=== PATIENT | female | born 1960 | race Caucasian/White ===

== ENCOUNTER 2019-09-22 16:17 | Observation (INO) | payer OTHER, SELFPAY ==
[2019-09-22] VITALS (30 sets, daily range): BP systolic 113–149; BP diastolic 48–92; PULSE 75–105; RESP 15; TEMP 35.7–37; O2SAT 91–100
--- NOTE | 2019-09-22 16:51 | ED.GENADUL_ITS ---
Discharge Plan Disposition Patient Disposition: [facility] INPATIENT Condition: Improving Discharge Details Chief Complaint: HeadInjury Clinical Impression: Head concussion Primary Care Provider: Magdalena Whitley ED Provider: Pantera Pedersen Home Meds and New Rx's Prescriptions: No Action dihydroergotamine 1 mg/mL Solution 1 mg SUBCUT Q1H PRNRF: 0 promethazine 25 mg/mL Solution 25 mg IM BID PRN PRNRF: 0 gabapentin 300 mg Capsule 600 mg PO QHS RF: 0 ondansetron 4 mg Tablet,Disintegrating 8 mg PO Q8H PRNRF: 0 apixaban 2.5 mg Tablet 2.5 mg PO BID RF: 0 desvenlafaxine 50 mg Tablet Extended Release 24 Hr 50 mg PO DAILY RF: 0 biotin 5,000 mcg Tablet,Disintegrating 5,000 mcg PO DAILY RF: 0 magnesium oxide 400 mg magnesium Tablet 400 mg PO BID RF: 0 Aimovig Autoinjector 140 mg/mL Auto-Injector 140 mg SUBCUT QMONTH RF: 0 Medical Decision Making <Kayla Thrasher DO - Last Filed: 09/22/19 19:42> 1630 -- 58-year-old female with a history of DVT on Eliquis presents for head injury with confusion and amnesia after fall while ice skating with her grandson. There was no report of LOC. Patient arrived per EMS. C-collar placed on arrival. Patient initially asked why she was here and did not recall the events leading to her being here. She initially did not know who was here with her. She then was able to recall her grandson's name who was sitting next to her. During my evaluation, patient appears confused, she continually asks what happened to her. She admits to some mild headache. She has had 2 episodes of vomiting. She denies any other pain or injury. She does not know her medical history or medications. No evidence of head trauma. No evidence of chest or abdomen or extremity trauma. Midline C/T/L-spine nontender. No obvious focal deficits. arrived shortly after patient's arrival and states that patient normally is alert and oriented x3. He states she takes Eliquis for history of left lower extremity blood clot. He states she does not normally go ice-skating and that she took her 4-year-old grandson this afternoon. He states she left at 1 PM and was her normal self at that time. We will send for stat CT head and cervical spine. Discussed with that her symptoms could be due to severe concussion. Patient given Zofran for nausea. 1739 --imaging reviewed and negative. Patient still with nausea. states the patient has frequent nausea with her migraines. Will give a dose of Phenergan and IV Tylenol. 1839 --patient reassessed -She appears sleepy but is now oriented x3. Discussed with that I recommend that patient stay for observation for the next few hours to ensure that her symptoms improve and she is more awake and alert with memory of advance. He is agreeable with this plan at this time. 1934 --patient complaining of headache 02/20 to nurse. Patient reassessed and she is oriented x3 but still appears confused. She does not recall ice-skating today. Patient does have a history of migraines and she admits to nausea. Will give a dose of Compazine, Benadryl, Decadron with another liter of IV fluids and will reassess. 1999 --Case endorsed to Dr. Pedersen to observe patient over the next few hours and reassess for mental status and if patient returns to baseline, can discharged home. If pt still remaining confused and amnestic, will recommend admission for observation overnight. Medical Records Medical records reviewed: Yes I reviewed the patient's medical records. <Pantera Pedersen, - Last Filed: 09/22/19 22:26> This is a 58-year-old female who was signed out to me by my colleague Dr. Kayla Thrasher, please refer to her history and physical, and assessment and plan. Patient was signed out for reevaluation after medication administration. Patient was ice skating, slipped and hit her head earlier today, she had a loss of consciousness, notable concussion and transient global amnesia. She is on Eliquis for history of blood clots. CT scan and initial assessment was performed by my colleague, CT scan negative for acute process. Per virtual radiology there is no evidence of bleed, however there is evidence of a dural based calcification in the left frontal lobe and a 15 mm densefalx calcification along the right anterior falx consistent with meningiomas. On reassessment the patient is having slight improvement, but does still have notable transient global amnesia. I feel that this is likely secondary to a notable concussion. With her lack of complete improvement, in conjunction with her Eliquis use, I do feel that observation period is warranted. I recommend overnight observation, and if her symptoms are unresolved then I think she would benefit from repeat imaging versus potential MRI. I discussed the case with the hospitalist Dr. Hendrix, he agrees with the assessment and plan. I have extensively reviewed the treatment plan with the patient. I have addressed all patient concerns at this time. I have also discussed the plan with the admitting physician and they agree with the current assessment and plan and have agreed to assume responsibility for the patient. All parties demonstrate verbal understanding and agreement with our assessment and plan at this time. FINDINGS: 18 mm dural based calcification in the left frontal lobe and 15 mm dense calcification along the right anterior falx consistent with meningiomas. No evidence of hemorrhage. No mass effect. No acute intracranial abnormality. No evidence of acute fracture. Fluid in the left mastoid air cells. IMPRESSION: No evidence of acute intracranial process. FINDINGS: Fluid again noted in the left mastoid air cells with a possible air-fluid level in a far medial cell. Acute mastoid sinus disease could not be excluded. Anatomic alignment. No evidence of acute fracture. Paraspinous soft tissues unremarkable. Lung apices within normal limits. IMPRESSION: 1. No evidence of acute bony injury. 2. Left mastoid sinus disease as outlined above. Thank you for allowing us to participate in the care of your patient. Dictated and Authenticated by: Cornelius Ybarra MD 09/22/2019 5:46 PM Eastern Time ([place] & [place]) HPI <Kayla Thrasher DO - Last Filed: 09/22/19 19:42> General Mode of arrival: EMS . Date/Time Provider Initiated Documentation: 09/22/19 16:35 . Limitations to Documentation: no limitations . Information obtained by: patient and EMS . History of Present Illness 58 year old F presents to the emergency department with the chief complaint of Fall while ice skating with head injury, no LOC, confusion and vomiting., and is localized to the head. Patient reports no radiation. Patient started experiencing this hour(s) (1) and it has been constant. No relieving factors improve symptom(s), No exacerbating factors reported . Patient notes confusion and nausea/vomiting; denies headaches. Patient did receive the following treatments prior to arrival, none Related Data Home Medications Medication Instructions Recorded Confirmed apixaban 2.5 mg PO BID 09/22/19 09/22/19 biotin 5,000 mcg PO DAILY 09/22/19 09/22/19 desvenlafaxine 50 mg PO DAILY 09/22/19 09/22/19 dihydroergotamine 1 mg SUBCUT Q1H PRN 09/22/19 09/22/19 erenumab-aooe [Aimovig 140 mg SUBCUT QMONTH 09/22/19 09/22/19 Autoinjector] gabapentin 600 mg PO QHS 09/22/19 09/22/19 magnesium oxide 400 mg PO BID 09/22/19 09/22/19 ondansetron 8 mg PO Q8H PRN 09/22/19 09/22/19 promethazine 25 mg IM BID PRN PRN 09/22/19 09/22/19 Allergies Allergy/AdvReac Type Severity Reaction Status Date / Time No Known Allergies Allergy Unverified 09/22/19 17:03 General Stated Complaint: HeadInjury MANE: 3 Review of Systems <Kayla Thrasher DO - Last Filed: 09/22/19 19:42> All systems reviewed & are unremarkable except as noted in HPI and below Constitutional Constitutional: Reports as per HPI, Denies chills and Denies fever(s) Eyes Eyes: Denies blurry vision ENT Ears, Nose, Mouth, and Throat: Denies dizziness, Denies sore throat and Denies throat swelling Cardiovascular Cardiovascular: Denies chest pain and Denies dyspnea Respiratory Respiratory: Denies cough and Denies dyspnea Gastrointestinal Gastrointestinal: Denies abdominal pain, Denies diarrhea and Denies vomiting Genitourinary Genitourinary: Denies hematuria and Denies dysuria Musculoskeletal Musculoskeletal: Denies back pain and Denies numbness Integumentary/Breasts Skin/Breast: Denies lesions and Denies rash Neurologic Neurologic: Denies dizziness, Denies focal weakness and Denies numbness Allergic/Immunologic Allergic/Immunologic: Denies throat swelling PFSH <Kayla Thrasher DO - Last Filed: 09/22/19 19:42> Medical History (Updated 09/22/19 @ 22:26 by Pantera Pedersen DO) DVT (deep venous thrombosis) (Chronic) Surgical History (Updated 09/22/19 @ 17:22 by Kayla Thrasher DO) History of bilateral tubal ligation (Acute) Social History Smoking/Tobacco Use Status: Never Alcohol Intake: current Alcohol Intake frequency: holidays/special occasions only Drug use: Never Exam <Kayla Thrasher DO - Last Filed: 09/22/19 19:42> Const General: cooperative and healthy appearing Orientation: alert and awake HENMT Head: normal to inspection Ears: hearing grossly normal bilaterally, external ears normal and TM's normal bilaterally General nose exam: external nose normal Face and sinus: normal facial exam Mouth: oral mucosae normal Teeth and gingiva: dentition normal Throat: posterior oropharynx normal Eyes General: appearance normal, both eyes and all related structures Eyelids: eyelids normal Pupils: PERRL EOM: EOM intact bilaterally Neck Neck: normal visual inspection Lymphatic: no lymphadenopathy noted Chest Chest: normal inspection of the chest, normal palpation of entire chest wall and no tenderness Resp Effort & Inspection: normal respiratory effort and able to speak in complete sentences Auscultation: clear to auscultation bilaterally Cardio Rate: regular rate Rhythm: regular rhythm GI Inspection: normal to inspection Palpation: soft, not firm, no guarding, no hepatosplenomegaly, no masses and nontender Auscultation: normal bowel sounds Back/Spine/Pelvis Cervical Spine: No cervical spinal tenderness Thoracic/Lumbar Spine: thoracic and lumbar spine normal to inspection, No thoracic spinal tenderness and No lumbar spinal tenderness Skin General skin exam: no rashes or lesions noted Neuro General: alert, awake, oriented Patient Orientation: Person, Place and Confused and moves all extremities Cranial Nerves: CN's II-XI intact bilaterally Cognition: normal cognition Speech: speech normal Gait: normal gait Motor: muscle tone normal throughout Sensory Exam: no sensory deficits noted Extrem General: normal to inspection, full ROM and normal capillary refill Psych Appearance: grossly normal Mental Status: mental status grossly normal Speech and Movement: speech and movement normal Affect: normal affect Thought Process: normal Course <Kayla Thrasher DO - Last Filed: 09/22/19 19:42> Vital Signs Vital signs: Vital Signs Temperature 96.3 F L 09/22/19 16:21 Pulse 91 H 09/22/19 16:21 Respiratory Rate 15 09/22/19 16:21 Blood Pressure 149/72 H 09/22/19 16:21 Pulse Oximetry 98 09/22/19 16:21 Temperature 96.3 F L 09/22/19 16:21 Temperature Source Tympanic 09/22/19 16:21 Pulse 91 H 09/22/19 16:21 Respiratory Rate 15 09/22/19 16:21 Blood Pressure 149/72 H 09/22/19 16:21 Pulse Oximetry 98 09/22/19 16:21 Oxygen Delivery Method Room Air 09/22/19 16:21 Oxygen Flow Rate 0 09/22/19 16:21 Comment 09/22/19 16:21 Sign Out <Kayla Thrasher DO - Last Filed: 09/22/19 19:42> Sign Out Data: Sign Out Comment: Follow-up on response to medications for headache as well as reassessment of mental status. If confirms patient more back to baseline and patient no longer significantly confused, can discharged home. If remains confused with amnesia, likely consider admission overnight for observation. Last updated by Kayla Thrasher DO at 09/22/19 19:44
[2019-09-22] MEDS: Ondansetron 4 MG/2 ML VIAL (16:55)
--- NOTE | 2019-09-22 17:19 | DI.CT_ITS ---
EXAM: CT HEAD CERVICAL SPINE WO CLINICAL HISTORY: s/p head injury, dizzy, vomiting,? FX TECHNIQUE: Noncontrast COMPARISON: No exams were available for comparison FINDINGS: HEAD: There is dense calcification emanating from the left frontal skull, measuring 18 millimeters, consistent with a calcified meningioma. An additional dense calcification is seen along the falx in the right frontal region. There is no evidence of mass effect or adjacent brain edema. No acute hem orrhage or skull fracture is seen. The ventricles are normal in size. There is fluid within several left mastoid air cells. No fracture is seen. CT of the cervical spine: No fracture or subluxation is seen. The airway appears intact. There are mi nimal degenerative changes. There is no paraspinal hematoma. Fluid is noted within several mastoid ai r cells. IMPRESSION: Left mastoid fluid. No acute abnormality. No acute abnormality.
--- NOTE | 2019-09-22 17:46 | DI.VRAD_ITS ---
PROCEDURE INFORMATION: Exam: CT Head Without Contrast Exam date and time: 09/22/2019 5:19 PM Age: 58 years old Clinical indication: Other: S/P head injury, dizzy, vomiting TECHNIQUE: Imaging protocol: Computed tomography of the head without contrast. Radiation optimization: All CT scans at this facility use at least one of these dose optimization techniques: automated exposure control; mA and/or kV adjustment per patient size (includes targeted exams where dose is matched to clinical indication); or iterative reconstruction. COMPARISON: No relevant prior studies available. FINDINGS: 18 mm dural based calcification in the left frontal lobe and 15 mm dense calcification along the right anterior falx consistent with meningiomas. No evidence of hemorrhage. No mass effect. No acute intracranial abnormality. No evidence of acute fracture. Fluid in the left mastoid air cells. IMPRESSION: No evidence of acute intracranial process. PROCEDURE INFORMATION: Exam: CT Cervical Spine Without Contrast Exam date and time: 09/22/2019 5:19 PM Age: 58 years old Clinical indication: Other: S/P head injury, dizzy, vomiting TECHNIQUE: Imaging protocol: Computed tomography images of the cervical spine without contrast. Radiation optimization: All CT scans at this facility use at least one of these dose optimization techniques: automated exposure control; mA and/or kV adjustment per patient size (includes targeted exams where dose is matched to clinical indication); or iterative reconstruction. COMPARISON: No relevant prior studies available. FINDINGS: Fluid again noted in the left mastoid air cells with a possible air-fluid level in a far medial cell. Acute mastoid sinus disease could not be excluded. Anatomic alignment. No evidence of acute fracture. Paraspinous soft tissues unremarkable. Lung apices within normal limits. IMPRESSION: 1. No evidence of acute bony injury. 2. Left mastoid sinus disease as outlined above. Dictated and Authenticated by: Cornelius Ybarra MD. Ordering:FIDEL Garza MD
[2019-09-22] MEDS: Normal Saline 1,000 ML 1000 ML IV ×2 (18:05→20:09)
[2019-09-22] MEDS: ACETAMINOPHEN 1,000 MG/100 ML BTL 400 MG IVPB (18:22)
[2019-09-22] MEDS: Dexamethasone 10 MG/ML VIAL IVP (20:07)
[2019-09-22] MEDS: diphenhydrAMINE 50 MG/ML VIAL 25 MG IVP (20:08)
[2019-09-22] MEDS: Prochlorperazine 10 MG/2 ML VIAL IVP (20:09)
--- NOTE | 2019-09-22 22:11 | W.PM.HP.N ---
Date of service: 09/22/19 Time of Service: 22:12 Assessment and Plan Assessment and plan (1) Head concussion: Start date: 09/22/19 Status: Acute Assessment and plan: This is a 58-year-old lady who fell while ice skating with her grandson striking the back of her head with significant concussion syndrome and loss of memory of the event but no loss of consciousness on the scene. She has a headache with her concussion and this is being treated with possible migraine headache exacerbated by the event. She is sedated but conscious and answering questions appropriate except for her loss of memory around the event. She has no focal neurological findings. She was not able to go home because of her continued headache and debilitated state. We will observe her overnight with every 2 hours neurochecks with rescanning if she has a change in status. Consider MRI in the morning if indicated. Neurology consultation if available during her observation. She will most likely require adjustment of therapy for her postconcussion headache possibility of an amitriptyline though she is already on antidepressants this needs to be reviewed for complex. Neurology may be helpful. If she does have a change in status or an intracranial bleed with rescanning she will be transferred [place] [facility] [place] intervention. Qualifiers: Encounter type: initial encounter Loss of consciousness presence/duration: without LOC Qualified Code(s): S06.0X0A - Concussion without loss of consciousness, initial encounter (2) Headache: Start date: 09/22/19 Status: Acute Assessment and plan: This is most likely a postconcussive headache along with her migraine headaches in combination. Continue symptomatic care with her usual meds and consider adding amitriptyline with neurology consultation locally or at [facility] for long-term care if there are no acute sequelae with intracranial bleed. Qualifiers: Headache chronicity pattern: acute headache Headache type: post-traumatic Intractability: intractable Qualified Code(s): G44.311 - Acute post-traumatic headache, intractable (3) Posttraumatic amnesia: Start date: 09/22/19 Status: Acute Assessment and plan: Patient has lost memory of the event only and is not usual. Continue to observe and follow-up with neurology in consultation as an outpatient. History of Present Illness History of Present Illness Chief Complaint: Fall on ice striking the back of her head with no loss of consciousness Narrative: This is a 58-year-old lady who was ice getting with her 4-year-old grandson when she caught the back of her skate and fell backwards striking her head twice bouncing off of the ice. She had whiplash type injury and hit the back of her head with no significant bleed or laceration. She has no memory of the event until she awakened in the ED but she was conscious throughout according to people at the scene. She complained of a headache and neck ache with some relief from medications in the ED. She has no focal motor deficits and she is able to speak though she is speaking softly. Is mostly closing her eyes stating that she does have light sensitivity with headaches at home and even without headaches. She was not incontinent of urine or stool and had no seizure activity at the scene. Imaging of the ED was negative for acute bleeds. Review of Systems Narrative: 13 point review of systems otherwise unrevealing or stable. Patient has loss of memory of the event and present has a headache 6 out of 10 with the patient stating sometimes her headache can be 20 out of 10 reflecting her poor coping with chronic pain. She does have depression. She has had no recent bleeding on Eliquis. 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 Migraine headache (Chronic) Surgical History History of bilateral tubal ligation (Acute) Social History Smoking/Tobacco Use Status: Never Alcohol Intake: current Alcohol Intake frequency: holidays/special occasions only Drug use: Never Meds Home Medications and Allergies Home Medications Medication Instructions Recorded Confirmed Type apixaban 2.5 mg PO BID 09/22/19 09/22/19 History biotin 5,000 mcg PO DAILY 09/22/19 09/22/19 History desvenlafaxine 50 mg PO DAILY 09/22/19 09/22/19 History dihydroergotamine 1 mg SUBCUT Q1H PRN 09/22/19 09/22/19 History erenumab-aooe [Aimovig 140 mg SUBCUT QMONTH 09/22/19 09/22/19 History Autoinjector] gabapentin 600 mg PO QHS 09/22/19 09/22/19 History magnesium oxide 400 mg PO BID 09/22/19 09/22/19 History ondansetron 8 mg PO Q8H PRN 09/22/19 09/22/19 History promethazine 25 mg IM BID PRN PRN 09/22/19 09/22/19 History Allergies Allergy/AdvReac Type Severity Reaction Status Date / Time No Known Allergies Allergy Unverified 09/22/19 17:03 Exam Narrative Exam Narrative: General: Patient appears appropriate for age, alert and oriented to person and place and to time except for the missing time around the accident. She is sedated. She appears to be in no acute distress with her eyes closed lying still and moderate distress when trying to answer questions. She does smile occasionally during conversation especially when she said sometimes her headache is a 20 out of 10. HEENT: Normocephalic with no obvious trauma to the face or back of her head. Eyes with pupils equal and reactive to light symmetrically, extraocular movement intact and sclera anicteric without injection or hemorrhage. There is no nystagmus. Ears are normal without drainage. Oropharynx with slightly dry oral mucosa and fair dentition. Neck: Supple without JVD. Slightly uncomfortable to passive range of motion but no crepitus. Back: Stooped posture without CVA tenderness. Lungs: Clear to auscultation percussion without focalizing findings or adventitious sounds. Normal aeration. Breast: Exam deferred. Heart: Regular rate and rhythm without murmurs or gallops appreciated. Abdomen: Soft, nontender with no palpable hepatosplenomegaly, no guarding no palpable masses. Rectal/genitalia: Exam deferred. Extremities: Without clubbing, cyanosis or edema with peripheral pulses intact. Normal musculature. All joints have full range of motion. Skin: Pale, warm and dry without bruising noted. Neuro: Cranial nerves II through XII grossly intact, no focalizing motor deficits, no Babinski's and reflexes are physiologic and symmetrical. Sensory appear to be grossly intact. Patient was examined lying in bed. Psych: Patient does have flattened affect and depressed mood with remote memory intact but more recent memory absent of the event but recent memory has not been a problem chronically. Lymphatics: No generalized lymphadenopathy. Results Imaging Imaging Studies: Exam: CT Head Without Contrast Exam date and time: 09/22/2019 5:19 PM Age: 58 years old Clinical indication: Other: S/P head injury, dizzy, vomiting TECHNIQUE: Imaging protocol: Computed tomography of the head without contrast. Radiation optimization: All CT scans at this facility use at least one of these dose optimization techniques: automated exposure control; mA and/or kV adjustment per patient size (includes targeted exams where dose is matched to clinical indication); or iterative reconstruction. COMPARISON: No relevant prior studies available. FINDINGS: 18 mm dural based calcification in the left frontal lobe and 15 mm dense calcification along the right anterior falx consistent with meningiomas. No evidence of hemorrhage. No mass effect. No acute intracranial abnormality. No evidence of acute fracture. Fluid in the left mastoid air cells. IMPRESSION: No evidence of acute intracranial process. PROCEDURE INFORMATION: Exam: CT Cervical Spine Without Contrast Exam date and time: 09/22/2019 5:19 PM Age: 58 years old Clinical indication: Other: S/P head injury, dizzy, vomiting TECHNIQUE: Imaging protocol: Computed tomography images of the cervical spine without contrast. Radiation optimization: All CT scans at this facility use at least one of these dose optimization techniques: automated exposure control; mA and/or kV adjustment per patient size (includes targeted exams where dose is matched to clinical indication); or iterative reconstruction. COMPARISON: No relevant prior studies available. FINDINGS: Fluid again noted in the left mastoid air cells with a possible air-fluid level in a far medial cell. Acute mastoid sinus disease could not be excluded. Anatomic alignment. No evidence of acute fracture. Paraspinous soft tissues unremarkable. Lung apices within normal limits. IMPRESSION: 1. No evidence of acute bony injury. 2. Left mastoid sinus disease as outlined above. Dictated and Authenticated by: Cornelius Ybarra MD. Labs Result diagrams: 09/22/19 22:20 09/22/19 22:20 Last Vital Signs Temp 35.7 C L 09/22/19 16:21 Pulse 88 09/22/19 19:46 Resp 15 09/22/19 16:21 BP 113/92 H 09/22/19 19:46 Pulse Ox 96 09/22/19 19:50
[2019-09-22 22:36] LABS: HCT 38.3 % (36.0-46.0); HGB 12.8 g/dL (12.0-15.5); Mean Corp. HGB Concentration 33.4 g/dL (32.0-36.0); Mean Corpuscular Hemoglobin 31.1 pg (27.0-33.0); Mean Corpuscular Volume 93.2 fL (80-95); Mean Platelet Volume 11.3 fL (8.0-11.0); Platelet Count 279 x1000/uL (130-400); RBC 4.11 m/cumm (4.00-5.20); RBC Distribution Width 12.9 % (11.7-14.6); White Blood Cell Count 7.77 k/cumm (4.4-10.8)
[2019-09-22 22:56] LABS: ALT 21 U/L (14-59); AST 24 U/L (15-37); Albumin 4.3 g/dL (3.4-5.0); Alkaline Phosphatase 76 U/L (46-116); Anion Gap 11.9 mmol/L (3-11); BUN 12 mg/dL (7-18); Bilirubin, Total 0.2 mg/dL (0.2-1.0); CO2 25.1 mmol/L (21.0-32.0); CREATININE 0.75 mg/dL (0.55-1.02); Calcium 8.7 mg/dL (8.5-10.1); Chloride 103 mmol/L (98-107); Glucose 130 mg/dL (74-106); INR 1.1 (0.9-1.1); Potassium 3.5 mmol/L (3.5-5.1); Prothrombin Time 10.6 sec (9.3-11.0); Sodium 140 mmol/L (136-145); TSH (W/Ref FT4) 8.66 uIU/mL (0.36-3.74); Total Protein 7.3 g/dL (6.4-8.2)
[2019-09-22 23:15] LABS: FREE T4 0.98 ng/dL (0.76-1.46)
[2019-09-22 23:51] LABS: ESR 13 mm/hr (0-30)
[2019-09-23] VITALS (9 sets, daily range): BP systolic 113–147; BP diastolic 57–81; PULSE 61–101; RESP 15–18; TEMP 36.4–37.1; O2SAT 95–100
[2019-09-23] MEDS: Gabapentin 300 MG CAP 600 MG PO (01:25)
[2019-09-23] MEDS: Acetaminophen 325 MG TAB 650 MG PO ×2 (08:13→15:33)
[2019-09-23] MEDS: Magnesium Oxide 400 MG TAB PO (08:13)
[2019-09-23] MEDS: Apixaban 2.5 MG TAB PO (10:08)
--- NOTE | 2019-09-23 11:31 | W.NUTCONSULT ---
Date of service: 09/23/19 Time of Service: 11:31 Nutritional Consult ASSESSMENT: 58 year old female s/p fall, cnocussion, post traumatic amnesia. Following Regular meal plan. BMI wnl. Will follow prn. MONITORING AND EVALUATION: po intake, weight, labs Time Spent in Nutritional Counseling and Treatment: 0 time spent face to face
--- NOTE | 2019-09-23 11:56 | W.NEUROCONSU ---
Date of service: 09/23/19 Time of Service: 10:56 Assessment and Plan Assessment and plan (1) Head concussion: Status: Acute Qualifiers: Encounter type: initial encounter Loss of consciousness presence/duration: without LOC Qualified Code(s): S06.0X0A - Concussion without loss of consciousness, initial encounter (2) Posttraumatic amnesia: Status: Acute (3) Transient global amnesia: Status: Acute (4) Chronic daily headache: Status: Acute (5) Migraine headache without aura: Status: Acute Assessment and plan: Ms. Atkins is a 58-year-old, right-handed woman with a history of chronic daily migraine headaches who was admitted status post fall without apparent loss of consciousness complicated by confusion, nausea, and emesis. She is on Eliquis for history of DVT. She had a CT head which showed no acute hemorrhage. Her symptoms have drastically improved today, however, she remains amnestic of most of the day yesterday. The amount of amnesia seems somewhat out of proportion to the reported head injury and I wonder if she had a secondary transient global amnesia triggered by the concussion. Irregardless, she clearly had concussion. We discussed signs and symptoms of concussion which would include her altered taste this morning. Given her history of chronic daily migraines as well as anxiety and depression, she is at high risk for prolonged recovery and postconcussive syndrome. We discussed biobehavioral/lifestyle modifications post-concussion. She should be avoiding bed rest but also should not be jumping to do all normal activities. We discussed taking a week off from work and then returning part-time next week if symptoms are tolerable. We discussed reduced screen time in the meantime. I also recommend she be treated with NAC 4gm now, then 2gm BID x2days, then 1.5gm BID x1 week. This is an antioxidant and can increase concussion recovery time. ADRs were discussed. I also recommend increasing gabapentin to 1200mg HS temporarily to help with sleep/migraine prevention until she can follow-up with her primary neurology team. Finally, she has 2 cerebral meningiomas. They appear old and have not changed in size since 2014. No further testing required. Philly Cabral INTERNET S[employer]CER, her headache provider, was out for today. I did speak with her nurse relaying inpatient stay and recommendations.. She will follow-up with [facility] neurology. I defer to them on the time frame for this. DISCLAIMER: This note was created using [employer] voice recognition software. (6) Cerebral meningioma: Status: Acute History of Present Illness History of Present Illness Chief Complaint: concussion s/p fall Narrative: Handedness: right. HPI: Ms. Atkins is a 58 year-old woman with a past medical history of migraine headaches, DVT on Eliquis, narrow angle glaucoma, depression, and anxiety. Ms. Hudson was ice-skating with her 4-year-old grandson, yesterday, 09/23/2019. She fell on the ice and hit her head. There was no reported loss of consciousness at the scene, however, she was brought by ambulance for confusion, nausea and vomiting. Upon arrival to the emergency room, she could not recall why she was brought there or even her grandson's name who accompanied her in the ambulance. This improved over time, but she still cannot recall the event. She was also noted to ask the same questions over and over in the emergency room. Today, she seems to be slightly tired/dazed, but is now putting forth new memories. She was able to recall her breakfast this morning as well as what time her arrived at the hospital. She has no recollection of the events yesterday after helping her grandson put on his ice skates. Her headache is currently at baseline. She has chronic daily headaches with more severe headaches occurring every other month. Her migraines are managed by Philly Cabral NP and Dr. Ivis Marquez at [facility]. Her current migraine regimen includes Aimovig 140mg once monthly, desvenlafaxine, and gabapentin 600mg HS. For rescue therapy, she has hydroxyzine, IM DHE+lidocaine, and IM Zofran. She has no current nausea, vomiting, or dizziness. She is fatigued but was awoken every 2 hours for neuro checks during the night. She describes whole body soreness. This morning, she notes decreased sense of taste with her breakfast. Coffee had a after bitter taste but she could not actually taste the coffee when she was swallowing it. As work-up, she had a CT head which showed no acute findings per my review. She has ~01j13ia left frontal and ~14x9mm right frontal falcine meningiomas. There is no mass effect. I was able to review a CT head from [facility] in 2014. The meningiomas have similar measurements by my view. 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 Migraine headache (Chronic) Narrow angle glaucoma suspect (Acute) Surgical History History of bilateral tubal ligation (Acute) Social History (Updated 09/23/19 @ 16:20 by Consuelo Chung MD) Smoking/Tobacco Use Status: Never Alcohol Intake: current Alcohol Intake frequency: holidays/special occasions only Drug use: Never Household members: spouse current occupation: [employer] Visit Medication and Allergies Active Medications Generic Name Dose Route Start Last Admin Trade Name Freq PRN Reason Stop Dose Admin Acetaminophen 650 mg 09/22/19 22:14 09/23/19 08:13 Tylenol PO 650 mg Q4H PRN PRN Administration Al Hydrox/Mg Hydrox/Simethicone 30 ml 09/22/19 22:14 Mylanta Liquid PO Q2H PRN PRN Apixaban 2.5 mg 09/23/19 08:30 09/23/19 10:08 Eliquis PO 2.5 mg BID SUKHWINDER Administration Dimethicone/Zinc Oxide 0 gm 09/22/19 22:14 Gerardo Protect Cream TP PRN PRN Docusate Sodium 100 mg 09/22/19 22:14 Colace PO TID PRN PRN IV Miscellaneous Supplies 1 each 09/22/19 22:15 IV DIRECTED SUKHWINDER Magnesium Hydroxide 30 ml 09/22/19 22:14 Milk Of Magnesia PO DAILY PRN PRN Magnesium Oxide 400 mg 09/23/19 08:30 09/23/19 08:13 Mag-Ox 400 PO 400 mg BID SUKHWINDER Administration Ondansetron HCl 8 mg 09/22/19 22:21 Zofran Odt PO Q8H PRN PRN Patient's Own Biotin 0 each 09/23/19 08:30 09/23/19 08:17 5000mcg PO Not Given DAILY SUKHWINDER Patient's Own 0 each 09/23/19 08:30 09/23/19 08:17 Desvenlafaxine 50mg PO Not Given DAILY SUKHWINDER Polyethylene Glycol 17 gm 09/22/19 22:14 Miralax PO DAILY PRN PRN Constipation Sodium Chloride 0 ml 09/22/19 22:14 Saline Flush 10 Ml Syringe IVP PRN PRN Allergies No Known Allergies Allergy (Unverified 09/22/19 17:03) Exam Narrative Exam Narrative: Physical Exam: Gen: Patient of apparent stated age, looks tired/groggy Head and face: no facial or cranial abnormalities Neck: Supple, no meningismus, no occipital tenderness CV: + S1, S2, RRR, no murmur Resp: CTA B/L Abd: soft, nontender, nondistended Ext: No edema. No clubbing or cyanosis. No bony deformity. Neuro Exam: Language: fluency, naming, repetition, and comprehension intact; Mental Status: AAOx3, current events intact, fund of knowledge intact; Speech: no dysarthria Cranial nerves: Funduscopy: not performed CN II: visual tellez intact CN III, IV, : extraocular movements intact, no nystagmus, pupils symmetric and reactive to light CN V: face sensation intact to LT and PP CN VII: no facial asymmetry noted CN VIII: hearing intact bilaterally CN IX, X: palate rises symmetrically CN XI: trapezius/SCM 5/5 bilaterally CN XII: protrudes tongue symmetrically Sensory: intact to LT, PP, vibration, and joint position in all extremities Motor: bulk and tone intact. Fine motor movements intact bilaterally. No pronator drift. Strength 5/5 throughout including the deltoids, biceps, triceps, wrist extensors, hip flexors, knee flexors, knee extensors, ankle flexors, and ankle extensors. Reflexes: 2+ at the biceps, triceps, brachioradialis, patella, and achilles tendons bilaterally; toes down going bilaterally; Coordination: FTN and HTS intact bilaterally Gait: deferred Results Last Vital Signs Temp 37.1 C 09/23/19 11:28 Pulse 69 09/23/19 11:28 Resp 18 09/23/19 11:28 BP 113/67 09/23/19 11:28 Pulse Ox 98 09/23/19 11:28 Labs Result diagrams: 09/22/19 22:20 09/22/19 22:20 Labs: Laboratory Results - last 24 hr 09/22/19 09/22/19 09/22/19 22:20 22:20 22:20 WBC 7.77 RBC 4.11 Hgb 12.8 Hct 38.3 MCV 93.2 MCH 31.1 MCHC 33.4 RDW 12.9 Plt Count 279 MPV 11.3 H ESR 13 PT 10.6 INR 1.1 Sodium 140 Potassium 3.5 Chloride 103 Carbon Dioxide 25.1 Anion Gap 11.9 H BUN 12 Creatinine 0.75 Estimated GFR/1.73 m2 >= 60.00 Glucose 130 H Calcium 8.7 Magnesium 2.0 Total Bilirubin 0.2 AST 24 ALT 21 Alkaline Phosphatase 76 Total Protein 7.3 Albumin 4.3 TSH 8.66 H Free T4 0.98
[2019-09-23] MEDS: Acetylcysteine 20% *ORAL/INHALED* 6000 MG/30 ML VIAL 4000 MG PO (12:07)
--- NOTE | 2019-09-23 15:34 | PDOC.CMIN ---
- If Service Date Differs Date of service: 09/23/19 Time of Service: 15:34 Care Management Initial Assess REASON FOR HOSPITALIZATION:: concussion PAST MEDICAL HISTORY/PAST SURGICAL HISTORY:: Medical History (Updated 09/23/19 @ 00:30 by Kendall Hendrix). Depression (Chronic). DVT (deep venous thrombosis) (Chronic). 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 Migraine headache (Chronic). Surgical History . History of bilateral tubal ligation (Acute) PREVIOUS FUNCTIONAL STATUS/SOCIAL/FAMILY SUPPORTS:: Lilo lives in a single family home in [place], [place] with her Krishan. They have 4 children between them but only Lilo's 2 children live locally. Lilo is independent at baseline.. 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 CURRENT FUNCTIONAL STATUS:: Lilo was sitting up in bed visiting with her when CM met with her. She stated that her memory of events from yesterday are still fuzzy and she still has a headache. Lilo shared that she had seen Dr. Mccray and that she would be discharged later today. ADVANCE DIRECTIVES:: provided with a copy of [facility] forms. Has patient been provided with information about the portal?: No Did the patient sign up for the portal?: No (not from area) CODE STATUS:: Full Code INSURANCE COVERAGE / FINANCIAL ISSUES:: [employer] [facility] CURRENT HOME/COMMUNITY SERVICES/EQUIPMENT:: none PRIMARY CARE PHYSICIAN:: Magdalena Whitley POTENTIAL DISCHARGE NEEDS:: Follow up with neurology and PCP PATIENT/FAMILY EDUCATION NEEDS:: Discharge plan, limitations, follow up plan, Ask Me Three TRANSPORTATION:: via private vehicle with PLAN:: Lilo will be discharged home with no new services, She will follow up with her PCP and discharge plan of care. She will transport via private vehicle with her .
--- NOTE | 2019-09-23 16:28 | PDOC.CMDIS ---
- If Service Date Differs Date of service: 09/23/19 Time of Service: 16:28 LACE Index Scoring Tool - Questions: Length of Stay (in days): 1 Acuity (Admit via E.D.?): Yes E.D. Visits: 1 - Answers: Total Score: 5 Risk of Readmission: Low Risk Care Management Discharge Reason for Hospitalization: concussion Discharge Plan: Lilo will be discharged home with no new services, She will follow up with her PCP and discharge plan of care. She will transport via private vehicle with her Patient/Family Education Needs: Discharge plan, limitations, follow up plan, Ask Me Three
--- NOTE | 2019-09-23 18:05 | DSE_ITS ---
Date of service: 09/23/19 Time of Service: 18:05 DS: Diagnosis Discharge Diagnosis (1) Head concussion: Status: Acute Asessment and Plan: Started N acetylcysteine regimen to prevent post concussion syndrome. (2) Posttraumatic amnesia: Status: Acute Asessment and Plan: Should be temporary (3) Transient global amnesia: Status: Acute (4) Chronic daily headache: Status: Acute Asessment and Plan: Continue present meds (5) Migraine headache without aura: Status: Acute (6) Cerebral meningioma: Status: Acute Asessment and Plan: Unchanged compared to previous imaging 2015 Discharge Plan Disposition Patient Disposition: HOME Condition: Improving Discharge Details Chief Complaint: HeadInjury Clinical Impression: Head concussion Reason For Visit: CONCUSSION WITH AMNESIA AND HEADACHE Admit Date/Time: 09/22/19 22:15 Admit Provider: Kendall Hendrix Attending Provider: Kendall Hendrix Primary Care Provider: Magdalena Whitley ED Provider: Pantera Pedersen Hospital Course Hospital Course: This is a 58-year-old female who fell while ice skating with her grandson striking the back of her head with significant concussion syndrome and loss of memory of the event but no loss of consciousness on the scene. She developed a headache with her concussion,with possible migraine headache exacerbated by the event. She has no focal neurological findings. Neurology consultation recommend she be treated with NAC 4gm now, then 2gm BID x4days, then 1.5gm BID x1 week. This is an antioxidant and can increase concussion recovery. ADRs were discussed. I also recommend increasing gabapentin to 1200mg HS temporarily to help with sleep until she can follow-up. She recommended she stay out of work for at least 1 week. She recommended against bedrest, moderate activity on a daily basis. She has discussed findings, clinical course, and recommendations with her primary neurological team, specifically Philly Cabral NP. She will follow[place] with [facility] [place]. Home Meds and New Rx's Prescriptions: New acetylcysteine 200 mg/mL (20 %) solution 2,000 mg PO BID 4 Days Qty: 80 RF: 0 acetylcysteine 200 mg/mL (20 %) solution 1,500 mg PO BID 7 Days Qty: 105 RF: 0 Continued dihydroergotamine 1 mg/mL Solution 1 mg SUBCUT Q1H PRNRF: 0 promethazine 25 mg/mL Solution 25 mg IM BID PRN PRNRF: 0 ondansetron 4 mg Tablet,Disintegrating 8 mg PO Q8H PRNRF: 0 apixaban 2.5 mg Tablet 2.5 mg PO BID RF: 0 desvenlafaxine 50 mg Tablet Extended Release 24 Hr 50 mg PO DAILY RF: 0 biotin 5,000 mcg Tablet,Disintegrating 5,000 mcg PO DAILY RF: 0 magnesium oxide 400 mg magnesium Tablet 400 mg PO BID RF: 0 Aimovig Autoinjector 140 mg/mL Auto-Injector 140 mg SUBCUT QMONTH RF: 0 gabapentin 300 mg Capsule 600 mg PO QHS Qty: 30 RF: 0 Discharge Instructions Instructions: Concussion (DC) Stand Alone Forms: Nursing Discharge Form Referrals: Magdalena Whitley [Primary Care Provider] - 10/02/19 1:15 pm Consuelo Chung MD [ [facility]] - (The office will call you to schedule an appointment ) Activity:: Activity as Tolerated Equipment/Supplies:: No Equipment Needed Diet:: As Tolerated Discharge Orders Discharge Orders: Discharge Order (Routine); Ordered 09/23/19 Ordered By: William Cortez Discharge Data Discharge Date/Time-TO BE ENTERED AT DEPARTURE: 09/23/19 16:30 DS: Summary Status at Discharge Functional status at discharge: independent ambulation Overall status at discharge: patient is back to baseline Mental Status: mental status grossly normal Speech and Movement: speech and movement normal Mood: congruent mood Affect: normal affect Time Spent with Patient providing and/or coordinating discharge services: Greater than 30 minutes Exam Narrative Exam Narrative: On the day of discharge patient was in no distress. She was somewhat groggy but easily aroused. Pupils were equal and reactive. Breathing was nonlabored her neurologic exam was nonfocal. 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 Psych Mental Status: mental status grossly normal Speech and Movement: speech and movement normal Mood: congruent mood Affect: normal affect DS: Data Vitals/I&O Vitals and I&O: Vital Signs Temperature 36.4 C L 09/23/19 15:55 Temperature Source Temporal Artery Scan 09/23/19 15:55 Pulse 69 09/23/19 15:55 Pulse Rhythm Regular 09/23/19 15:56 Respiratory Rate 18 09/23/19 15:55 Respiratory Effort Non-Labored 02/10/20 15:56 Respiratory Depth Shallow 09/23/19 15:56 Respiratory Pattern Normal 09/23/19 15:56 Blood Pressure 122/71 09/23/19 15:55 Blood Pressure Mean 70 09/22/19 22:42 Pulse Oximetry 98 09/23/19 15:55 Oxygen Delivery Method Room Air 09/23/19 15:55 Oxygen Flow Rate 0 09/23/19 15:55 Pain Level 4 09/23/19 15:55 Comment 09/22/19 16:21 Intake & Output 09/22/19 09/23/19 09/23/19 23:59 11:59 23:59 Intake Total 215 / 2150 200 / 550 350 / 550 Balance 215 / 2150 200 / 550 350 / 550 Weight 50.802 kg 57.3 kg Intake: IV 2150 Oral 200 / 550 350 / 550 Data Completed and Pending Labs on day of discharge: Labs from last 24 hours 09/22/19 09/22/19 09/22/19 22:20 22:20 22:20 WBC 7.77 RBC 4.11 Hgb 12.8 Hct 38.3 MCV 93.2 MCH 31.1 MCHC 33.4 RDW 12.9 Plt Count 279 MPV 11.3 H ESR 13 PT 10.6 INR 1.1 Sodium 140 Potassium 3.5 Chloride 103 Carbon Dioxide 25.1 Anion Gap 11.9 H BUN 12 Creatinine 0.75 Estimated GFR/1.73 m2 >= 60.00 Glucose 130 H Calcium 8.7 Magnesium 2.0 Total Bilirubin 0.2 AST 24 ALT 21 Alkaline Phosphatase 76 Total Protein 7.3 Albumin 4.3 TSH 8.66 H Free T4 0.98 [facility] Medical History Anxiety (Chronic) Cerebral meningioma (Acute) Chronic daily headache (Acute) Depression (Chronic) DVT (deep venous thrombosis) (Chronic) 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 Migraine headache (Chronic) Narrow angle glaucoma suspect (Acute) Surgical History History of bilateral tubal ligation (Acute) Social History Smoking/Tobacco Use Status: Never Alcohol Intake: current Alcohol Intake frequency: holidays/special occasions only Drug use: Never Household members: spouse current occupation: [employer]
== END 2019-09-23 16:30 | disposition home or self-care (01) ==
LOC: ER 22:59 → MS 23:57
PROVIDERS: Admitting Provider Family Medicine; Emergency Provider Student in an Organized Health Care Education/Training Program; PCP General Practice; Visit Provider Family Medicine
DX: S06.0X0A Concussion without loss of consciousness, initial encounter (principal); W00.0XXA Fall on same level due to ice and snow, initial encounter; G44.311 Acute post-traumatic headache, intractable; G45.4 Transient global amnesia; Y93.21 Activity, ice skating; G43.009 Migraine without aura, not intractable, without status migrainosus; D32.0 Benign neoplasm of cerebral meninges; Z86.718 Personal history of other venous thrombosis and embolism; Z79.01 Long term (current) use of anticoagulants; F32.9 Major depressive disorder, single episode, unspecified
CPT/HCPCS: 36415; 80053; 85027; 85652; 96361; 96365; 96367; 96375; 99217; 99223; 99255; 99285; 70450; 72125; 83735; 84439; 84443; 85610; 99220; G0378; J0131; J0780; J1100; J1200; J2405; J7608; L0172

== ENCOUNTER 2021-11-05 08:00 | Outpatient (RCR) | payer OTHER, SELFPAY | END 2021-11-11 23:59 | disposition home or self-care (01) | LOC: CR 08:00 | PROVIDERS: PCP General Practice; Visit Provider Family Medicine | DX: Z51.89 Encounter for other specified aftercare (principal); I25.2 Old myocardial infarction; Z95.5 Presence of coronary angioplasty implant and graft | CPT/HCPCS: S9472 ==

== ENCOUNTER 2021-12-10 08:00 | Outpatient (RCR) | payer OTHER, SELFPAY | END 2021-12-11 23:59 | disposition home or self-care (01) | LOC: CR 08:00 | PROVIDERS: PCP General Practice; Visit Provider Internal Medicine Cardiovascular Disease | DX: Z51.89 Encounter for other specified aftercare (principal); I25.2 Old myocardial infarction; Z95.5 Presence of coronary angioplasty implant and graft | CPT/HCPCS: S9472 ==

== ENCOUNTER 2022-01-07 08:00 | Outpatient (RCR) | payer OTHER, SELFPAY | END 2022-01-11 23:59 | disposition home or self-care (01) | LOC: CR 08:00 | PROVIDERS: PCP General Practice; Visit Provider Internal Medicine Cardiovascular Disease | DX: Z51.89 Encounter for other specified aftercare (principal); I25.10 Atherosclerotic heart disease of native coronary artery without angina pectoris; Z95.5 Presence of coronary angioplasty implant and graft | CPT/HCPCS: S9472 ==

== ENCOUNTER 2022-02-02 08:00 | Outpatient (RCR) | payer OTHER, SELFPAY | END 2022-02-10 23:59 | disposition home or self-care (01) | LOC: CR 08:00 | PROVIDERS: PCP General Practice; Visit Provider Internal Medicine Cardiovascular Disease | DX: Z51.89 Encounter for other specified aftercare (principal); I25.2 Old myocardial infarction; Z95.5 Presence of coronary angioplasty implant and graft | CPT/HCPCS: S9472 ==